=== PATIENT | male | born 1940 | race Caucasian/White ===

== ENCOUNTER 2018-11-06 07:44 | Day surgery (SDC) | payer MEDICARE ==
[~2018-11-06] VITALS: Ht 182.9 cm; Wt 85.4 kg
[~2018-11-06 07:44] MED LIST: EPINEPHRINE TOPICAL SOLN 1 MG/ML, 30ML ONE; FLUORESCEIN SODIUM 500 MG/5 ML ONE; LIDOCAINE 1%-EPI 1:100K, 20ML ONE
[2018-11-06] MEDS ORDERED: DOXA2TAB9 PO (08:09)
[2018-11-06] MEDS ORDERED: CARB1TAB22 PO (08:09)
[2018-11-06] MEDS ORDERED: FINA5TAB4 PO (08:09)
[2018-11-06] MEDS ORDERED: METF500T17 PO (08:09)
[2018-11-06] MEDS ORDERED: BENA20TA54 PO (08:09)
[2018-11-06] MEDS ORDERED: PIOG30TA67 PO (08:09)
[2018-11-06 08:21] VITALS: BP 134/74
[2018-11-06] MEDS ORDERED: LACTATED RINGERS 1,000 ML IV SCH (08:29)
[2018-11-06] MEDS ORDERED: PROMETHAZINE 25 MG/ML, 1ML IV PRN (08:30)
[2018-11-06] MEDS ORDERED: FENTANYL PF 100 MCG/2ML IV PRN (08:30)
[2018-11-06] MEDS ORDERED: ACETAMINOPHEN 325 MG TABLET PO PRN (08:30)
[2018-11-06] MEDS ORDERED: OXYcodone 5 MG/5 ML ORAL.SOL UDC PO PRN (08:30)
[2018-11-06 08:32] VITALS: BP 134/74
[2018-11-06] MEDS ORDERED: PLEASE ENTER HEIGHT AND WEIGHT MC SCH (09:00)
[2018-11-06 09:27] LABS: ALANINE AMINOTRANSFERASE 17 U/L (12-78); ALBUMIN 3.9 g/dL (3.4-5.0); ANION GAP 8 mmol/L (5-15); CHLORIDE 109 mmol/L (98-107)
[2018-11-06 09:29] LABS: ALKALINE PHOSPHATASE 71 U/L (45-117); BILIRUBIN,TOTAL 0.6 mg/dL (0.2-1.0); TOTAL PROTEIN 7.1 g/dL (6.4-8.2)
[2018-11-06] MEDS ORDERED: MIDAZOLAM 1 MG/ML, 2ML ONE (09:46)
[2018-11-06] MEDS ORDERED: FENTANYL PF 250 MCG/5ML ONE (09:47)
[2018-11-06] MEDS ORDERED: PROPOFOL 10 MG/ML, 20ML ONE ×2 (10:20)
[2018-11-06] MEDS ORDERED: DEXAMETHASONE 4 MG/ML, 1ML ONE ×3 (10:20)
[2018-11-06] MEDS ORDERED: ONDANSETRON 2MG/ML, 2ML ONE (10:20)
[2018-11-06] MEDS ORDERED: SUCCINYLCHOLINE 20 MG/ML, 10ML ONE (10:20)
[2018-11-06] MEDS ORDERED: CEFAZOLIN 1,000 MG ONE (10:29)
[2018-11-06] MEDS ORDERED: GLYCOPYRROLATE 0.4 MG/2 ML, 2ML ONE (10:32)
[2018-11-06] MEDS ORDERED: OXYMETAZOLINE NASAL SPRAY 0.05%, 15ML NAS ONE (10:49)
[2018-11-06] MEDS ORDERED: EPHEDRINE 50 MG/ML, 1ML ONE (11:07)
[2018-11-06] MEDS ORDERED: hydrALAzine 20 MG/ML, 1ML ONE (12:17)
[2018-11-06] MEDS ORDERED: hydrALAzine 20 MG/ML, 1ML IV PRN (12:30)
== END 2018-11-06 17:50 | disposition home or self-care (01) ==
LOC: OUT 07:44
PROVIDERS: ATTEND Otolaryngology
DX: K14.8 Other diseases of tongue (principal); I10 Essential (primary) hypertension; E11.9 Type 2 diabetes mellitus without complications; J32.0 Chronic maxillary sinusitis; Z79.84 Long term (current) use of oral hypoglycemic drugs
CPT/HCPCS: 31535; 80053; 82962; 88305; 88331; 88341; 88342; 93005; J0330; J0360; J0690; J1100; J2704; J3010; J7120; J2250; J2405; J3490

== ENCOUNTER 2018-11-29 11:35 | Observation (INO) | payer MEDICARE ==
[~2018-11-29] VITALS: Ht 182.9 cm; Wt 81.3 kg
[~2018-11-29 11:35] MED LIST changes: +BENA20TA54 PO; +CARB1TAB22 PO; +DOXA2TAB9 PO; -EPINEPHRINE TOPICAL SOLN 1 MG/ML, 30ML ONE; +FINA5TAB4 PO; -FLUORESCEIN SODIUM 500 MG/5 ML ONE; -LIDOCAINE 1%-EPI 1:100K, 20ML ONE; +METF500T17 PO; +PIOG30TA67 PO
[2018-11-29] MEDS ORDERED: LACTATED RINGERS 1,000 ML IV SCH (12:16)
[2018-11-29] MEDS ORDERED: ACETAMINOPHEN 500 MG TABLET PO ONE (12:30)
[2018-11-29] MEDS ORDERED: TAMSULOSIN 0.4 MG CAP.ER.24H PO ONE (12:30)
[2018-11-29 12:47] VITALS: BP 151/73
[2018-11-29] MEDS ORDERED: INSU100V8 SQ (12:58)
[2018-11-29] MEDS ORDERED: CARBIDOPA/LEVODOPA 25 MG/100 MG TABLET PO ONE (13:30)
[2018-11-29] MEDS ORDERED: EPINEPHRINE TOPICAL SOLN 1 MG/ML, 30ML ONE (14:28)
[2018-11-29] MEDS ORDERED: BACITRACIN OINT 500U/GM, 15 GM ONE (14:28)
[2018-11-29] MEDS ORDERED: EPINEPHRINE 1 MG/ML, 1ML ONE (14:29)
[2018-11-29] MEDS ORDERED: OXYMETAZOLINE NASAL SPRAY 0.05%, 15ML ONE (14:29)
[2018-11-29] MEDS ORDERED: BACITRACIN 50,000 UNIT ONE (14:29)
[2018-11-29] MEDS ORDERED: LIDOCAINE 1%-EPI 1:100K, 50ML ONE (14:29)
[2018-11-29] MEDS ORDERED: FLUORESCEIN SODIUM 500 MG/5 ML ONE (14:29)
[2018-11-29] MEDS ORDERED: FENTANYL PF 250 MCG/5ML ONE (14:45)
[2018-11-29] MEDS ORDERED: PROPOFOL 10 MG/ML, 20ML ONE (14:45)
[2018-11-29] MEDS ORDERED: PHENYLEPHRINE 10 MG/ML ONE (14:45)
[2018-11-29] MEDS ORDERED: ROCURONIUM 10MG/ML,5ML ONE (14:46)
[2018-11-29] MEDS ORDERED: SODIUM CHLORIDE 0.9% PF 10ML ONE (14:59)
[2018-11-29] MEDS ORDERED: CEFAZOLIN 1,000 MG ONE ×2 (14:59)
[2018-11-29] MEDS ORDERED: PROMETHAZINE 12.5 MG SUPP PR PRN (15:00)
[2018-11-29] MEDS ORDERED: ONDANSETRON ODT 8 MG PO PRN (15:00)
[2018-11-29] MEDS ORDERED: HYDROmorphone 2 MG/ML, 1ML IVPush PRN (15:00)
[2018-11-29] MEDS ORDERED: FENTANYL PF 100 MCG/2ML IV PRN (15:00)
[2018-11-29] MEDS ORDERED: ONDANSETRON 2MG/ML, 2ML IV PRN (15:00)
[2018-11-29] MEDS ORDERED: LABETALOL 5MG/ML, 20ML IV PRN (15:00)
[2018-11-29] MEDS ORDERED: PROMETHAZINE 25 MG/ML, 1ML IM PRN ×3 (15:00→19:30)
[2018-11-29] MEDS ORDERED: OXYcodone 5 MG/5 ML ORAL.SOL UDC PO PRN (15:00)
[2018-11-29] MEDS ORDERED: PROMETHAZINE 25 MG/ML, 1ML IV PRN (15:00)
[2018-11-29] MEDS ORDERED: MORPHINE SULFATE 4 MG/ML, 1ML IVPush PRN ×2 (15:00→20:00)
[2018-11-29] MEDS ORDERED: hydrALAzine 20 MG/ML, 1ML IV PRN (15:00)
[2018-11-29] MEDS ORDERED: PROMETHAZINE 25 MG SUPP PR PRN (15:00)
[2018-11-29] MEDS ORDERED: MEPERIDINE/PF 25MG/0.5ML IVPush PRN (15:00)
[2018-11-29] MEDS ORDERED: DEXAMETHASONE 4 MG/ML, 1ML ONE ×2 (15:01)
[2018-11-29] MEDS ORDERED: VASOPRESSIN 20 UNIT/ML, 1ML ONE (15:37)
[2018-11-29] MEDS ORDERED: SUGAMMADEX 200 MG/2 ML IVPush ONE (16:35)
[2018-11-29] MEDS ORDERED: OXYcodone 5 MG/5 ML ORAL.SOL UDC ONE (18:11)
[2018-11-29] MEDS ORDERED: SODIUM CHLORIDE 0.9% 1,000 ML IV SCH (19:24)
[2018-11-29] MEDS ORDERED: ONDANSETRON 2MG/ML, 2ML IVPush PRN ×2 (19:30→20:00)
[2018-11-29] MEDS ORDERED: hydrALAzine 20 MG/ML, 1ML IVPush PRN (19:30)
[2018-11-29] MEDS ORDERED: POLYETHYLENE GLYCOL 17 GM PACKET PO PRN (19:30)
[2018-11-29] MEDS ORDERED: HYDROcodone/APAP 5/325 TABLET PO PRN ×2 (19:30→20:00)
[2018-11-29] MEDS ORDERED: DOCUSATE 100 MG CAPSULE PO PRN (19:30)
[2018-11-29] MEDS ORDERED: ACETAMINOPHEN 325 MG TABLET PO PRN (19:30)
[2018-11-29] MEDS ORDERED: BISACODYL 10 MG SUPP PR PRN (19:30)
[2018-11-29] MEDS ORDERED: ONDANSETRON ODT 4 MG PO PRN (19:30)
[2018-11-29] MEDS ORDERED: morphine SULFATE 10 MG/ML, 1ML IVPush PRN (19:30)
[2018-11-29] MEDS: LACTATED RINGERS 1,000 ML IV SCH (20:00)
[2018-11-29] MEDS ORDERED: metFORMIN 500 MG TABLET PO SCH (21:00)
[2018-11-29] MEDS: CARBIDOPA/LEVODOPA 25 MG/100 MG TABLET PO SCH (21:57)
[2018-11-30] VITALS: BP 124/64
[2018-11-30] MEDS ORDERED: TEMAZEPAM 15 MG CAPSULE PO ONE
[2018-11-30 03:55] VITALS: BP 147/76
[2018-11-30 05:17] LABS: BASOPHILS # (AUTO) 0.01 x10^3/uL (0-0.1); BASOPHILS % (AUTO) 0 % (0-1); EOSINOPHILS % (AUTO) 0 % (1-7); LYMPHOCYTES % (AUTO) 8 % (22-44); MD NO; MEAN CORPUSCULAR HEMOGLOBIN 28.5 pg (27.5-34.5); MEAN CORPUSCULAR HGB CONC 32.8 g/dL (33.2-36.2); MEAN CORPUSCULAR VOLUME 86.8 fL (81-97); MEAN PLATELET VOLUME 7.5 fL (7.4-10.4); MONOCYTES # (AUTO) 0.52 x10^3/uL (0.2-0.8); MONOCYTES % (AUTO) 5 % (2-9); NEUTROPHILS # (AUTO) 9.62 x10^3/uL (1.8-6.8); NEUTROPHILS % (AUTO) 87 % (42-75); PLATELET COUNT 165 x10^3/uL (130-400); RED BLOOD COUNT 3.87 x10^6/uL (4.38-5.82); RED CELL DISTRIBUTION WIDTH 15.8 % (9.4-14.8)
[2018-11-30 05:26] LABS: CHLORIDE 107 mmol/L (98-107)
[2018-11-30 05:35] LABS: ALANINE AMINOTRANSFERASE 7 U/L (12-78); ALBUMIN 3.2 g/dL (3.4-5.0); ALKALINE PHOSPHATASE 60 U/L (45-117); ANION GAP 7 mmol/L (5-15); BILIRUBIN,TOTAL 0.7 mg/dL (0.2-1.0); CALCIUM 8.3 mg/dL (8.5-10.1); CREATININE 0.95 mg/dL (0.7-1.3); TOTAL PROTEIN 6.1 g/dL (6.4-8.2)
[2018-11-30] MEDS ORDERED: INSULIN GLARGINE 100 UNITS/ML, PEN SQ-INSULIN SCH (06:00)
[2018-11-30] MEDS: LACTATED RINGERS 1,000 ML IV SCH (06:00)
[2018-11-30 07:10] VITALS: BP 135/67
[2018-11-30] MEDS: CARBIDOPA/LEVODOPA 25 MG/100 MG TABLET PO SCH (08:54)
[2018-11-30] MEDS ORDERED: FINASTERIDE 5 MG TABLET PO SCH (09:00)
[2018-11-30] MEDS ORDERED: AMPICILLIN/SULBACTAM 3 GM in SODIUM CHLORIDE 0.9% 100 ML IV SCH (09:00)
[2018-11-30] MEDS ORDERED: BENAZEPRIL 20 MG TABLET PO SCH (09:00)
[2018-11-30] MEDS ORDERED: PIOGLITAZONE 15 MG TABLET PO SCH (09:00)
[2018-11-30] MEDS ORDERED: DOXAZOSIN 2MG TABLET PO SCH (09:00)
== END 2018-11-30 13:42 | disposition home or self-care (01) ==
LOC: OUT 11:35 → 4NOR 18:39 → INTOOBSV 20:20 → 4NOR 20:20 → OUT 20:20
PROVIDERS: ADMIT Otolaryngology; ATTEND Otolaryngology
DX: J32.8 Other chronic sinusitis (principal); K14.9 Disease of tongue, unspecified; D64.9 Anemia, unspecified; G20 Parkinson's disease; E11.9 Type 2 diabetes mellitus without complications; I10 Essential (primary) hypertension; N40.0 Benign prostatic hyperplasia without lower urinary tract symptoms; Z79.4 Long term (current) use of insulin; Z83.3 Family history of diabetes mellitus; Z85.72 Personal history of non-Hodgkin lymphomas; Z92.21 Personal history of antineoplastic chemotherapy
CPT/HCPCS: 31253; 31256; 31535; 36415; 80053; 81340; 81342; 81479; 82962; 83735; 85025; 87070; 87075; 87205; 88184; 88185; 88304; 88305; 88331; 88333; 88341; 88342; 88365; 96365; 96372; G0378; J0171; J0295; J0690; J1100; J1815; J2370; J2704; J3010; J3490; J7120

== ENCOUNTER 2018-12-19 07:51 | Outpatient (CLI) | payer MEDICARE ==
[~2018-12-19 07:51] MED LIST changes: +INSU100V8 SQ
== END 2018-12-19 23:59 | disposition home or self-care (01) ==
LOC: PETCFH 07:51
PROVIDERS: ATTEND Internal Medicine
DX: C85.91 Non-Hodgkin lymphoma, unspecified, lymph nodes of head, face, and neck (principal); I35.8 Other nonrheumatic aortic valve disorders; R59.0 Localized enlarged lymph nodes; J98.4 Other disorders of lung
CPT/HCPCS: 78815; 93306; A9552